=== PATIENT | male | born 1975 | race Two or more races ===

== ENCOUNTER 2018-04-20 14:33 | Emergency (ER) | payer SELFPAY ==
[~2018-04-20] VITALS: Ht 167.6 cm; Wt 81.6 kg
[2018-04-20] MEDS ORDERED: Norco 5mg/325mg tab ORAL ONE (15:00)
[2018-04-20] MEDS ORDERED: Tetanus/Diptheria/Pertussis Vaccine 0.5ml Syr IM ONE (15:00)
[2018-04-20 15:10] VITALS: BP 153/89
--- NOTE | 2018-04-20 15:10 | NUR ---
ED Nurse Note: pt present at ER with laceration from falling from 7 feet at work. bleeding stopped by EMT prior to visit but still scant amount of blood present. pt aao x 4 and calm but moaning for pain 10/10 on laceration site.
--- NOTE | 2018-04-20 15:48 | Diagnostic Imaging Report ---
Indications: Head pain, status post 7 foot fall at work with head trauma Technique: Spiral acquisitions obtained through the brain. Angled axial and coronal 5 x 5 mm slices were reconstructed. Total dose length product 1467.58 mGycm. CTDI vol(s) 70.38 mGy. Dose reduction achieved using automated exposure control Comparison: None. Findings: No acute intercranial hemorrhage nor edema, mass effect, nor midline shift. Normal varela-white differentiation. Normal-sized ventricles and extra axial CSF spaces. There is a left maxillary sinus polyp versus mucous retention cyst. The mastoids are clear. The calvarium is intact Impression: Negative for acute intracranial bleed or mass effect Incidental finding of left maxillary sinus disease The CT scanner at [facility] is accredited by the [employer] and the scans are performed using protocols designed to limit radiation exposure to as low as reasonably achievable to attain images of sufficient resolution adequate for diagnostic evaluation.
--- NOTE | 2018-04-20 15:51 | Diagnostic Imaging Report ---
Indications: Active pain status post 7 foot fall at work Technique: Spiral acquisitions obtained through the lumbar spine. Multiplanar reconstructions were generated. No IV contrast utilized. Total dose length product 413.82 mGycm. CTDIvol(s) 15.13 mGy. Dose reduction achieved using automated exposure control Comparison: none Findings: Bony alignment is normal. Vertebral body heights are preserved. No acute fractures. No dislocations. The disc spaces are preserved. There is minimal circumferential annular bulge at L4-5, which results in borderline narrowing of the spinal canal at this level. At the other levels, no significant disc bulge or protrusion, spinal stenosis, or neural foraminal stenosis demonstrated. There is minimal vacuum formation involving the T12-L1, L1-2, L2-3 days, consistent with very early degenerative changes. The included extraspinal soft tissues are unremarkable. Impression: No acute process Minimal early degenerative changes, as described The CT scanner at [facility] is accredited by the [employer] and the scans are performed using protocols designed to limit radiation exposure to as low as reasonably achievable to attain images of sufficient resolution adequate for diagnostic evaluation.
--- NOTE | 2018-04-20 17:18 | Diagnostic Imaging Report ---
Indications:Elbow pain, status post fall Technique: Three or 4 views of the left elbow Comparison: None Findings: No joint effusion is demonstrated. However, there is a small ossific density projecting over the articular surface of the lateral aspect of the radial head, and is suggestion of slight cortical irregularity of the anterolateral aspect of the radial head on the oblique view. No other evidence of acute fracture. There is a small olecranon spur Impression: Findings somewhat suspicious for chip fracture of the lateral or anterolateral aspect of the radial head. Correlate with clinical findings Findings discussed by phone with Dr. Ko at the time of interpretation
--- NOTE | 2018-04-20 17:21 | Diagnostic Imaging Report ---
Clinical Indication:Left wrist pain Technique: 3 views of the left wrist Comparison: None Findings: Bony alignment is normal. There is slight irregularity of the posterior aspect of the carpus on the lateral view overlying the triquetrum, with possible small bone fragment. No dislocations. Joint spaces are preserved. There are mild degenerative changes of the distal radial ulnar joint. Impression: Possible small triquetral fracture Findings discussed by phone with Dr. Ko at the time of interpretation
--- NOTE | 2018-04-20 17:21 | Diagnostic Imaging Report ---
Indication: Trauma, pain Technique: 3 views of the left knee Comparison: None Findings: No acute fractures. No dislocations. No suprapatellar effusion. Impression: Negative
[2018-04-20] MEDS ORDERED: Bacitracin Oint 15gm Tube TOPIC ONE (17:33)
--- NOTE | 2018-04-20 17:35 | Emergency Room Report ---
History of Present Illness General Chief Complaint: Multiple Trauma/Fall Source: Patient Present Illness HPI 42-year-old male presents ED for evaluation. Patient walked in status post fall. States he fell off a 7 foot height onto some metal shrapnel. P her status left thigh. Complaining of headache, back pain, left leg pain. Elbow and wrist pain on the left. Denies LOC. Pain is throbbing, 9 out of 10, nonradiating. Denies any other injuries. Tetanus unknown. No other aggravating relieving factors. Denies any other associated symptoms Allergies: Coded Allergies: No Known Allergies (Unverified , 04/20/18) Patient History Past Medical History: none Past Surgical History: none Pertinent Family History: none Social History: Denies: smoking, alcohol use, drug use Immunizations: UTD Reviewed Nursing Documentation: PMH: Agreed; PSxH: Agreed Nursing Documentation-PMH Past Medical History: No Stated History Review of Systems All Other Systems: negative except mentioned in HPI Physical Exam Vital Signs Date Time Temp Pulse Resp B/P (MAP) Pulse Ox O2 Delivery O2 Flow Rate FiO2 04/20/18 14:40 97.5 71 20 153/89 99 Room Air Sp02 EP Interpretation: reviewed, normal General Appearance: no apparent distress, alert, GCS 15, non-toxic Head: normocephalic Eyes: bilateral eye normal inspection, bilateral eye PERRL ENT: normal ENT inspection Neck: normal inspection Respiratory: chest non-tender, lungs clear, normal breath sounds, speaking full sentences Cardiovascular #1: regular rate, rhythm, no edema Gastrointestinal: normal bowel sounds, non tender, soft, non-distended, no guarding, no rebound Rectal: deferred Genitourinary: no vertebral tenderness Musculoskeletal: tender - L elbow, L wrist Neurologic: alert, oriented x3, responsive, motor strength/tone normal, sensory intact, speech normal Psychiatric: normal inspection Skin: other - 6cm laceration to L proximal thigh. subcutaneous fat noted Lymphatic: normal inspection Procedures Splinting Splinting : Consent: Verbal Splint: sugar-tong Pre-Proc Neuro Vasc Exam: normal Post-Proc Neuro Vasc Exam: normal Patient Tolerated: Well Complications: None Laceration/Wound Repair Laceration/Wound Repair : Consent: Verbal Wound Location: lower extremity - L thigh Wound's Depth, Shape: superficial, linear Wound Explored: clean Betadine Prep?: Yes Anesthesia: 1% Lidocaine Wound Debrided: minimal Wound Repaired With: sutures Suture Size/Type: other - ethilon Layer Closure?: No Sterile Dressing Applied?: Yes Splint Applied?: No Sling Applied?: Yes Patient Tolerated: Well Complications: None Medical Decision Making Diagnostic Impression: Primary Impression: Multiple injuries due to trauma Additional Impressions: Elbow fracture Qualified Codes: S42.402A - Unspecified fracture of lower end of left humerus , initial encounter for closed fracture Triquetral chip fracture Qualified Codes: S62.112A - Displaced fracture of triquetrum [cuneiform] bone , left wrist, initial encounter for closed fracture ER Course Hospital Course 42 yo M presents with laceration to L thigh, multiple injruies due to fall Differential diagnoses include: Fracture, dislocation, sprain, contusion Clinical course Patient placed on stretcher. After initial history and physical, I ordered TDAP , pain medications and multiple imaging studies CT of head and L-spine unremarkable X-ray of left elbow shows questionable radial head fracture. Triquetral fracture on left wrist. Some subcutaneous air noted on left femur x-ray at site of metal penetration. During wound exploration he did not appear to go past the subcutaneous fat. Wound irrigated. Laceration repaired. Antibiotics given. Dressing applied Placed in a posterior long splint with stirrup. Given sling. Discussed findings with patient. Safe for discharge and close outpatient follow -up. We'll provide surgery referral and or the referral. Wound care instructions given. Return to ED in 7-10 days for suture removal. Diagnosis - laceration of thigh, multiple injuries due to trauma, elbow fx, triqetral chip fx Stable and discharged to home with prescription for Motrin, [place], augmentin, bacitracin. weight bear as tolerated. Followup with ortho/surgery. Return to ED for suture removal Other X-Ray Diagnostic Results Other X-Ray Diagnostic Results #1: X-Ray ordered: L femur # of Views/Limited Vs Complete: 3 View Indication: Pain EP Interpretation: Yes Interpretation: no dislocation, no fractures, other - some subcutaneous air in proximal femur Impression: Other Electronically Signed by: Electronically signed by Nickolas Ko MD Other X-Ray Diagnostic Results #2: X-Ray ordered: L knee # of Views/Limited Vs Complete: 3 View Indication: Pain EP Interpretation: Yes Interpretation: no dislocation, no soft tissue swelling, no fractures Impression: No acute disease Electronically Signed by: Electronically signed by Nickolas Ko MD Other X-Ray Diagnostic Results #3: X-Ray ordered: R knee # of Views/Limited Vs Complete: 3 View Indication: Pain EP Interpretation: Yes Interpretation: no dislocation, no soft tissue swelling, no fractures Impression: No acute disease Electronically Signed by: Electronically signed by Nickolas Ko MD Other X-Ray Diagnostic Results #4: X-Ray ordered: L elbow # of Views/Limited Vs Complete: 3 View Indication: Pain EP Interpretation: Yes Interpretation: no dislocation, other - radial head fx Impression: Other - radial head fx Electronically Signed by: Electronically signed by Nickolas Ko MD Other X-Ray Diagnostic Results #5: X-Ray ordered: L wrist # of Views/Limited Vs Complete: 3 View Indication: Pain EP Interpretation: Yes Interpretation: no dislocation, no soft tissue swelling, other - L triquetral Impression: Other - triquetral fx Electronically Signed by: Electronically signed by Nickolas Ko MD CT/MRI/US Diagnostic Results CT/MRI/US Diagnostic Results #1: Imaging Test Ordered: CT Head Impression no acute process CT/MRI/US Diagnostic Results #2: Imaging Test Ordered: CT L spine Impression no acute process Last Vital Signs Date Time Temp Pulse Resp B/P (MAP) Pulse Ox O2 Delivery O2 Flow Rate FiO2 04/20/18 15:10 71 20 Room Air 04/20/18 15:10 97.5 153/89 99 Status: improved Disposition: HOME, SELF-CARE Condition: Stable Scripts Bacitracin (Bacitracin) 28.4 Gm Oint...g. 1 APPLIC TOPIC THREE TIMES A DAY, #28.4 GM Prov: Nickolas Ko MD 04/20/18 Amoxicillin/Potassium Clav 875-125* (AUGMENTIN 875-125 TABLET*) 1 Each Tablet 1 TAB ORAL TWICE A DAY, #14 TAB Prov: Nickolas Ko MD 04/20/18 Hydrocodone Bit/Acetaminophen 5-325* (NORCO 5-325*) 1 Each Tablet 1 TAB ORAL Q6H PRN for For Pain, #10 TAB 0 Refills Prov: Nickolas Ko MD 04/20/18 Ibuprofen* (MOTRIN*) 600 Mg Tablet 600 MG ORAL Q8H PRN for For Pain, #30 TAB 0 Refills Prov: Nickolas Ko MD 04/20/18 Nickolas Ko MD Apr 20, 2018 17:35
[2018-04-20] MEDS ORDERED: Augmentin 875mg Tab ORAL ONE (17:45)
--- NOTE | 2018-04-20 17:55 | Diagnostic Imaging Report ---
Indications: Trauma Technique: Two views of the left femur Comparison: None Findings: Soft tissue gas is seen within the medial left thigh soft tissues. No acute fractures. No dislocations. No bony disruption. No radiopaque foreign body Impression: Medial left thigh soft tissue gas, presumably on the basis of penetrating trauma given stated clinical history of fall. Correlate with clinical findings Negative for fracture or radiopaque foreign body. Findings discussed by phone with Dr. Ko in the emergency room at the time of interpretation
--- NOTE | 2018-04-20 17:56 | Diagnostic Imaging Report ---
Indication: Pain, status post fall Technique: 3 views of the right knee Comparison: None Findings: There is degenerative narrowing of the medial and lateral joint compartments. No acute fractures. No dislocations. No suprapatellar effusion Impression: Degenerative changes. No acute bony trauma
[2018-04-20] MEDS ORDERED: Bacitracin Oint 15gm Tube TOPIC SCH (18:00)
[2018-04-20] MEDS ORDERED: NORCO 5-325 TA1 EACH ORAL (18:00)
[2018-04-20] MEDS ORDERED: IBUPROFEN600 MG ORAL (18:00)
[2018-04-20] MEDS ORDERED: BACITRACIN15 GM TOPIC (18:00)
[2018-04-20] MEDS ORDERED: AUGMENTIN 875-1 EAC1 ORAL (18:00)
[2018-04-20 18:08] VITALS: BP 153/89
--- NOTE | 2018-04-20 18:09 | NUR ---
ED Nurse Note: Pt was cleared to be discharged after getting stiched by ERMD. pt received prescriptions and discharge instruction and verbalized understanding. wound dressing and splint and sling were provided. no s/s of infection noted. pt assisted by family and was discharged. id band was removed.
== END 2018-04-20 18:15 | disposition home or self-care (01) ==
LOC: EMR 15:17
DX: S71.112A Laceration without foreign body, left thigh, initial encounter (principal); W17.89XA Other fall from one level to another, initial encounter; Y92.69 Other specified industrial and construction area as the place of occurrence of the external cause; S42.402A Unspecified fracture of lower end of left humerus, initial encounter for closed fracture; S62.112A Displaced fracture of triquetrum [cuneiform] bone, left wrist, initial encounter for closed fracture; M25.562 Pain in left knee; M54.9 Dorsalgia, unspecified; R51 Headache; M25.529 Pain in unspecified elbow; Z23 Encounter for immunization
CPT/HCPCS: 29125; 29505; 70450; 72131; 90471; 90715; 99284